=== PATIENT | female | born 1995 | race Two or more races ===

== ENCOUNTER 2018-02-15 03:08 | Emergency (ER) | payer BC ==
[~2018-02-15] VITALS: Ht 160 cm; Wt 71.2 kg
[2018-02-15] MEDS ORDERED: diphenhydrAMINE 50 MG/1 ML VIAL IV ONE (03:45)
[2018-02-15] MEDS ORDERED: MORPHINE SULFATE 2 MG/1 ML DISP.SYRIN IV ONE (03:45)
[2018-02-15] MEDS ORDERED: MORPHINE SULFATE 4 MG/1 ML DISP.SYRIN ONE (03:56)
[2018-02-15] MEDS ORDERED: diphenhydrAMINE 50 MG/1 ML VIAL ONE (03:56)
[2018-02-15 04:12] LABS: CREATININE 0.7 mg/dL (0.6-1.3); POTASSIUM 3.4 mmol/L (3.5-5.1)
--- NOTE | 2018-02-15 04:13 | NUR ---
PT IN BED RESTING QUIETLY WITH EYES CLOSED. PT'S MOTHER AT BEDSIDE. PT CALM AND COOPERATIVE. PT IS A&OX4. VSS AND WNL. PT REPORTS BEING PAIN FREE AT THIS TIME. NO SIGNS OF DISTRESS AT THIS TIME.
[2018-02-15 04:23] LABS: BASOPHILS # (AUTO) 0.1 K/uL (0.0-8.0); BASOPHILS % (AUTO) 0.9 % (0.0-2.0); EOSINOPHILS # (AUTO) 0.2 K/uL (0.0-0.7); HEMATOCRIT 40.1 % (31.2-41.9); HEMOGLOBIN 13.7 g/dL (10.9-14.3); LYMPHOCYTES # (AUTO) 2.1 K/uL (20.0-40.0); LYMPHOCYTES % (AUTO) 26.2 % (20.5-51.5); MEAN CORPUSCULAR HEMOGLOBIN 28.9 uug (24.7-32.8); MEAN CORPUSCULAR HGB CONC 34 g/dL (32.3-35.6); MEAN CORPUSCULAR VOLUME 84.1 fL (75.5-95.3); MONOCYTES # (AUTO) 0.5 K/uL (2.0-10.0); MONOCYTES % (AUTO) 6.4 % (0.0-11.0); NEUTROPHILS # (AUTO) 5.2 K/uL (1.8-8.9); NEUTROPHILS % (AUTO) 64.5 % (38.5-71.5); PLATELET COUNT (AUTO) 218 K/uL (179-408); RED BLOOD CELL COUNT(AUTO) 4.76 MIL/uL (3.63-4.92); WHITE BLOOD COUNT (AUTO) 8.1 K/uL (3.8-11.8)
[2018-02-15 04:25] LABS: BILIRUBIN,DIRECT 0.3 mg/dL (0.0-0.2); BILIRUBIN,TOTAL 0.5 mg/dL (0.2-1.0); TOTAL PROTEIN, SERUM 7.2 g/dL (6.4-8.2)
[2018-02-15] MEDS ORDERED: IV NORMAL SALINE 1000 ML BAG IV ONE (05:15)
[2018-02-15] MEDS ORDERED: NORMAL SALINE FLUSH 10 ML DISP.SYRIN ONE (05:27)
[2018-02-15] MEDS ORDERED: IOHEXOL 350 100 ML INFUS..BTL ONE (05:27)
[2018-02-15] MEDS ORDERED: SWABABLE VALVE TRANSFER SET EA MC ONE (05:27)
[2018-02-15] MEDS ORDERED: IV NORMAL SALINE 100 ML ONE (05:27)
--- NOTE | 2018-02-15 05:40 | NUR ---
PT IN ROUTE TO CT IN [facility] WITH TRANSPORTER
--- NOTE | 2018-02-15 06:11 | NUR ---
PT BACK FROM CT IN [facility] WITH TRANSPORTER
[2018-02-15] MEDS ORDERED: ACETAMINOPHEN 325 MG TABLET PO ONE (06:45)
[2018-02-15] MEDS ORDERED: ACETAMINOPHEN 325 MG TABLET ONE (06:47)
--- NOTE | 2018-02-15 06:55 | NUR ---
Patient discharged to home in stable conditon. Written and verbal after care instructions given. Patient verbalizes understanding of instructions. Patient able to ambulate unassisted with a steady gait. Patient left with all personal belongings.
[2018-02-15 06:59] VITALS: BP 122/76
== END 2018-02-15 06:55 | disposition home or self-care (01) ==
LOC: ER 03:08
DX: R07.89 Other chest pain (principal)
CPT/HCPCS: 36415; 71045; 71275; 80048; 80076; 83690; 83880; 84484; 84703; 85025; 85379; 85730; 93005; 96374; 96375; 99285; A4663; J1200; J2270; J3490 ×2; J7030; Q9967; 70030-TC

== ENCOUNTER 2018-02-23 04:06 | Emergency (ER) | payer BC, OTHER ==
[~2018-02-23] VITALS: Ht 160 cm; Wt 71.2 kg
[2018-02-23] MEDS ORDERED: ONDANSETRON ODT 4 MG TAB.RAPDIS ONE (04:42)
[2018-02-23] MEDS ORDERED: DICYCLOMINE HCL 10 MG/5 ML UDC LIQ ONE (04:43)
[2018-02-23] MEDS ORDERED: MAG HYDROX/AL HYDROX/SIMETH 30 ML LIQUID UDC ONE ×2 (04:43)
[2018-02-23] MEDS ORDERED: ONDANSETRON ODT 4 MG TAB.RAPDIS SL ONE (04:45)
[2018-02-23] MEDS ORDERED: DICYCLOMINE HCL 10 MG/5 ML UDC LIQ PO ONE (04:45)
[2018-02-23] MEDS ORDERED: MAG HYDROX/AL HYDROX/SIMETH 30 ML LIQUID UDC PO ONE (04:45)
[2018-02-23] MEDS ORDERED: IV NORMAL SALINE 1000 ML BAG IV ONE (05:00)
[2018-02-23] MEDS ORDERED: HYDROMORPHONE 1 MG/1 ML DISP.SYRIN IV ONE (05:00)
[2018-02-23] MEDS ORDERED: ONDANSETRON 4 MG/2 ML VIAL IV ONE (05:00)
[2018-02-23] MEDS ORDERED: PANTOPRAZOLE SODIUM 40 MG VIAL IV ONE (05:00)
[2018-02-23 05:12] LABS: HEMOGLOBIN 14.2 g/dL (10.9-14.3); MEAN CORPUSCULAR HEMOGLOBIN 29.1 uug (24.7-32.8); MEAN CORPUSCULAR VOLUME 84.2 fL (75.5-95.3); RED BLOOD CELL COUNT(AUTO) 4.87 MIL/uL (3.63-4.92)
[2018-02-23 05:13] LABS: BASOPHILS # (AUTO) 0.1 K/uL (0.0-8.0); BASOPHILS % (AUTO) 1.3 % (0.0-2.0); EOSINOPHILS # (AUTO) 0.1 K/uL (0.0-0.7); EOSINOPHILS % (AUTO) 1.6 % (0.0-7.0); LYMPHOCYTES # (AUTO) 2.3 K/uL (20.0-40.0); LYMPHOCYTES % (AUTO) 28.3 % (20.5-51.5); MEAN CORPUSCULAR HGB CONC 35 g/dL (32.3-35.6); MONOCYTES # (AUTO) 0.5 K/uL (2.0-10.0); MONOCYTES % (AUTO) 6.2 % (0.0-11.0); NEUTROPHILS % (AUTO) 62.6 % (38.5-71.5); PLATELET COUNT (AUTO) 238 K/uL (179-408)
[2018-02-23] MEDS ORDERED: ONDANSETRON 4 MG/2 ML VIAL ONE ×2 (05:15→06:18)
[2018-02-23] MEDS ORDERED: HYDROMORPHONE 2 MG/1 ML DISP.SYRIN ONE (05:15)
[2018-02-23] MEDS ORDERED: PANTOPRAZOLE SODIUM 40 MG VIAL ONE (05:15)
[2018-02-23 05:29] LABS: *BILIRUBIN,URIN NEGATIVE (NEGATIVE); *BLOOD, URINE Trace-intact (NEGATIVE); *CLARITY,URINE SLIGHTLY CLOUDY (CLEAR); *COLOR,URINE YELLOW (YELLOW); *KETONES,URINE NEGATIVE (NEGATIVE); *PROTEIN,URINE NEGATIVE (NEGATIVE); LEUKOCYTE ESTERASE ,URINE NEGATIVE (NEGATIVE); NITRITE, URINE NEGATIVE (NEGATIVE); UGLUCOSE NEGATIVE (NEGATIVE)
[2018-02-23 05:39] LABS: BILIRUBIN,DIRECT 0.1 mg/dL (0.0-0.2); BILIRUBIN,TOTAL 0.6 mg/dL (0.2-1.0); CREATININE 0.8 mg/dL (0.6-1.3); POTASSIUM 3.6 mmol/L (3.5-5.1); TOTAL PROTEIN, SERUM 7.8 g/dL (6.4-8.2)
[2018-02-23 05:43] LABS: BACTERIA,URINE NONE SEEN /HPF (NONE SEEN); SQUAMOUS EPITHELIAL CELL,UR MODERATE /HPF (NONE SEEN); URINE AMORPHOUS PHOSPHATES MANY /HPF; WBC,URINE 0-3 /HPF (0-3)
[2018-02-23] MEDS ORDERED: ONDANSETRON IV *ER 4 MG/2 ML VIAL IV ONE (06:15)
--- NOTE | 2018-02-23 07:00 | NUR ---
IV removed. Catheter intact and site benign. Pressure and 4x4 gauze applied to site. No bleeding noted.
--- NOTE | 2018-02-23 07:03 | NUR ---
Patient discharged to home in stable conditon. Written and verbal after care instructions given. Patient verbalizes understanding of instructions. Pt ambulated out of ER in steady gait with mother who will drive home. All belongings with pt. VSS. No acute distress noted.
[2018-02-23 07:05] VITALS: BP 110/74
== END 2018-02-23 07:06 | disposition home or self-care (01) ==
LOC: ER 04:08
DX: K29.70 Gastritis, unspecified, without bleeding (principal)
CPT/HCPCS: 36415; 71045; 74176; 80048; 80076; 81001; 83690; 84703; 85025; 87086; 96361; 96374; 96375; 96376; 99285; C9113; J1170; J2405 ×2; J7030; Q0162

== ENCOUNTER 2018-03-16 23:38 | Emergency (ER) | payer BC, OTHER ==
[~2018-03-16] VITALS: Ht 157.5 cm; Wt 65.8 kg
--- NOTE | 2018-03-16 23:48 | NUR ---
DR LEISA PEREZ MD AT BEDSIDE FOR MSE.
[2018-03-17] MEDS ORDERED: MORPHINE SULFATE 4 MG/1 ML DISP.SYRIN ONE
[2018-03-17] MEDS ORDERED: MORPHINE SULFATE 4 MG/1 ML DISP.SYRIN IV ONE
[2018-03-17 00:07] LABS: BASOPHILS # (AUTO) 0.1 K/uL (0.0-8.0); BASOPHILS % (AUTO) 0.9 % (0.0-2.0); EOSINOPHILS # (AUTO) 0.2 K/uL (0.0-0.7); EOSINOPHILS % (AUTO) 1.8 % (0.0-7.0); HEMATOCRIT 42.1 % (31.2-41.9); HEMOGLOBIN 14.5 g/dL (10.9-14.3); LYMPHOCYTES # (AUTO) 2.7 K/uL (20.0-40.0); LYMPHOCYTES % (AUTO) 25.8 % (20.5-51.5); MEAN CORPUSCULAR HEMOGLOBIN 29.4 uug (24.7-32.8); MEAN CORPUSCULAR HGB CONC 35 g/dL (32.3-35.6); MEAN CORPUSCULAR VOLUME 85.1 fL (75.5-95.3); MONOCYTES # (AUTO) 0.5 K/uL (2.0-10.0); MONOCYTES % (AUTO) 4.9 % (0.0-11.0); NEUTROPHILS # (AUTO) 6.8 K/uL (1.8-8.9); NEUTROPHILS % (AUTO) 66.6 % (38.5-71.5); PLATELET COUNT (AUTO) 255 K/uL (179-408); RED BLOOD CELL COUNT(AUTO) 4.94 MIL/uL (3.63-4.92); WHITE BLOOD COUNT (AUTO) 10.3 K/uL (3.8-11.8)
[2018-03-17 00:17] LABS: CREATININE 0.7 mg/dL (0.6-1.3); POTASSIUM 3.3 mmol/L (3.5-5.1)
[2018-03-17 00:23] LABS: BILIRUBIN,DIRECT 0.2 mg/dL (0.0-0.2); BILIRUBIN,TOTAL 0.5 mg/dL (0.2-1.0)
--- NOTE | 2018-03-17 01:12 | NUR ---
US AT PT BEDSIDE.
--- NOTE | 2018-03-17 01:36 | NUR ---
PT PROVIDED SNACK. PENDING TOLERANCE.
--- NOTE | 2018-03-17 02:12 | NUR ---
Patient discharged to home in stable conditon. Written and verbal after care instructions given. Patient verbalizes understanding of instructions. IV removed, w/ catheter intact. Pressure applied, no bleeding noted at site. Pt ambulated from ER w/ steady gait, accompanied by mother. No distress noted. Denies abd pain, N/V.
[2018-03-17 02:14] VITALS: BP 122/83
== END 2018-03-17 02:14 | disposition home or self-care (01) ==
LOC: ER 23:41
DX: K80.80 Other cholelithiasis without obstruction (principal)
CPT/HCPCS: 36415; 76705; 80048; 80076; 83690; 84703; 85025; 96374; 99285; A4663; J2270